=== PATIENT | male | born 1960 | race Caucasian/White ===

== ENCOUNTER 2019-06-25 05:20 | Inpatient (IN) | payer MEDICARE ==
[~2019-06-25] VITALS: Ht 172.7 cm; Wt 95.0 kg
--- NOTE | 2019-06-25 10:30 | NUR ---
POLISHING MACHINE OPERATOR HELPER NOTES RECEIVED PT FROM [facility], BROUGHT IN BY 2 AMBULANCE PERSONNEL VIA [facility], PT IS AWAKE, ALERT AND ORIENTED, DENIES PAIN, RESPIRATIONS NORMAL, ASSISTED TO BED, MADE COMFORTABLE, ROOM SET UP ORIENTATION PROVIDED TO PT, VERBALIZED UNDERSTANDING, PT CAME WITH F/C, DRAINING WELL WITH CLEAR, YELLOW URINE, AWAITING ADMITTING ORDERS FROM MD.
[2019-06-25 11:00] VITALS: BP 137/73
[2019-06-25] MEDS ORDERED: AMLO5TAB9 PO (11:36)
[2019-06-25] MEDS ORDERED: CLOP75TA15 PO (11:36)
[2019-06-25] MEDS ORDERED: FURO80TA3 PO (11:36)
[2019-06-25] MEDS ORDERED: ATOR80TA PO (11:36)
[2019-06-25] MEDS ORDERED: POTA-10 PO (11:36)
[2019-06-25] MEDS ORDERED: SPIR25TA6 PO (11:36)
[2019-06-25] MEDS ORDERED: ATEN50TA PO (11:36)
[2019-06-25] MEDS ORDERED: MAGNESIUM HYDROXIDE 30 ML UDC PO PRN (12:30)
[2019-06-25] MEDS ORDERED: INSULIN REGULAR, HUMAN 100 UNIT/ML 3 ML VIAL SQ PRN (12:30)
[2019-06-25] MEDS ORDERED: Z GUARD REMEDY 2 OZ OINT TP PRN (12:30)
[2019-06-25] MEDS ORDERED: DEXTROSE 50%-WATER 50 ML DISP.SYRIN IV PRN ×2 (12:30→18:30)
[2019-06-25] MEDS ORDERED: MAG HYDROX/AL HYDROX/SIMETH 30 ML UDC PO PRN (12:30)
[2019-06-25] MEDS ORDERED: ONDANSETRON HCL/PF 4 MG/2 ML VIAL IVP PRN (12:30)
[2019-06-25] MEDS ORDERED: ACETAMINOPHEN 325 MG TABLET PO PRN (12:30)
[2019-06-25] MEDS ORDERED: PIPERACILLIN /TAZOBACTAM 3.375 G in IV D5W 50 ML IV ONE ×2 (13:00→18:00)
--- NOTE | 2019-06-25 13:00 | NUR ---
RESOURCE CONSERVATION MANAGER NOTES PT SEEN AND EXAMINED BY DR. HALL, PLAN OF CARE DISCUSSED WITH PT, VERBALIZED UNDERSTANDING.
[2019-06-25 13:39] LABS: BASOPHILS # (AUTO) 1.3 /CMM (0.0-0.2); EOSINOPHILS % (AUTO) 1.8 % (0.0-6.0); HEMATOCRIT 42 % (39-51); HEMOGLOBIN 13.4 g/dL (13.5-17.5); LYMPHOCYTES # (AUTO) 4.2 /CMM (0.8-4.8); LYMPHOCYTES % (AUTO) 22.6 % (20.0-44.0); MEAN CORPUSCULAR HGB CONC 32 g/dl (31.0-36.0); MEAN CORPUSCULAR VOLUME 85 fL (80-96); MONOCYTES # (AUTO) 1.6 /CMM (0.1-1.30); MONOCYTES % (AUTO) 8.5 % (2.0-12.0); NEUTROPHILS # (AUTO) 11.2 /CMM (1.8-8.9); NEUTROPHILS % (AUTO) 60.3 % (43.0-81.0); PLATELET COUNT (AUTO) 250 /CMM (150-450); RED BLOOD CELL COUNT(AUTO) 4.94 MIL/uL (4.5-6.0); WHITE BLOOD COUNT (AUTO) 18.6 K/uL (4.3-11.0)
[2019-06-25 13:47] LABS: BASOPHILS % (AUTO) 6.8 % (0.0-2.0)
[2019-06-25 13:51] LABS: ALBUMIN 3.3 g/dL (3.4-5.0); BILIRUBIN,TOTAL 0.5 mg/dL (0.2-1.0); CALCIUM, SERUM 9.6 mg/dL (8.5-10.1); CREATININE 2.2 mg/dL (0.6-1.3); MAGNESIUM 2.5 mg/dL (1.8-2.4); PHOSPHORUS 2.2 mg/dL (2.5-4.9); POTASSIUM 3.3 mmol/L (3.5-5.1); TOTAL PROTEIN, SERUM 7.6 g/dL (6.4-8.2)
[2019-06-25 13:58] LABS: THYROID STIMULATING HORMONE 2.394 uIU/mL (0.358-3.74)
[2019-06-25] MEDS ORDERED: K PHOS NEUTRAL 250 MG TABLET PO ONE (15:30)
[2019-06-25 16:00] VITALS: BP 141/60
--- NOTE | 2019-06-25 16:19 | NUR ---
RETAIL COSMETICS SALES BEAUTY ADVISOR NOTES INFORMED DR. HALL OF PT'S BLOOD GLUCOSE RESULTS, ORDERS GIVEN, NOTED AND CARRIED OUT.
[2019-06-25] MEDS ORDERED: BLOOD SUGAR DIAGNOSTIC 1 EACH STRIP IN SCH (17:30)
--- NOTE | 2019-06-25 18:32 | NUR ---
OIL FILTERS INSPECTOR NOTES PT IN BED, ASLEEP, EASY TO AROUSE, ALERT AND ORIENTED, NPO FOR NOW, PT VERBALIZED UNDERSTANDING, PM MEDS GIVEN ORDERED, ALL NEEDS ATTENDED.
--- NOTE | 2019-06-25 19:50 | NUR ---
BICYCLE REPAIRMAN OPENING NOTES RECEIVED PATIENT SLEEPING IN BED COMFORTABLY; EASILY AROUSABLE; A/OX4; KHMER SPEAKER; BREATHING EVEN AND UNLABORED; NO SOB NOTED; PATIENT TOLERATING ROOM AIR WELL; PEÑA CATH IN PLACE; FLOWING YELLOW OUTPUT; L FA #20 HL INTACT AND PATENT; FLUSHING WELL; NO S/S OF REDNESS OR INFILTRATION NOTED; SAFETY PRECAUTIONS IMPLEMENTED; BED LOCKED IN LOW POSITION; SIDE RAILS X2; CALL LIGHT WITHIN EASY REACH; WILL CONT TO MONITOR
[2019-06-25 20:00] VITALS: BP 145/73
[2019-06-25] MEDS: PIPERACILLIN /TAZOBACTAM 3.375 G in IV D5W 100 ML IV SCH (20:13)
[2019-06-25 20:36] VITALS: BP 145/73
[2019-06-25] MEDS: BLOOD SUGAR DIAGNOSTIC 1 EACH STRIP VI SCH (21:41)
[2019-06-25] MEDS: ATORVASTATIN 40 MG TABLET PO SCH (21:44)
[2019-06-25] MEDS: INSULIN REGULAR, HUMAN 100 UNIT/ML 3 ML VIAL SQ PRN (21:46)
[2019-06-26] VITALS: BP 136/69
[2019-06-26] MEDS: PIPERACILLIN /TAZOBACTAM 3.375 G in IV D5W 100 ML IV SCH ×3 (03:13→20:11)
--- NOTE | 2019-06-26 03:40 | NUR ---
SINGER SONGWRITER NOTES PATIENT SLEEPING WELL; AWAKENS EASILY; BREATHING EVEN AND UNLABORED; NO SOB NOTED; NO ACUTE DISTRESS; PATIENT A/OX4; HUNGARIAN SPEAKER; TOLERATING IVF WELL; PATIENT NPO STATUS MAINTAINED; WILL CONT TO MONITOR;
[2019-06-26 04:00] VITALS: BP 136/66
[2019-06-26 04:33] VITALS: BP 136/66
--- NOTE | 2019-06-26 05:40 | NUR ---
STUDIO COORDINATOR NOTES MRSA SWAB COLLECTED VIA R NARE; LAB INFORMED
--- NOTE | 2019-06-26 06:17 | NUR ---
REGISTERED DENTAL ASSISTANT RDA NOTES BS 405; RECHECKED BS AT 368
[2019-06-26] MEDS: BLOOD SUGAR DIAGNOSTIC 1 EACH STRIP VI SCH ×4 (06:33→22:10)
[2019-06-26] MEDS: INSULIN REGULAR, HUMAN 100 UNIT/ML 3 ML VIAL SQ PRN ×3 (06:40→17:50)
[2019-06-26 07:00] LABS: BASOPHILS # (AUTO) 0.1 /CMM (0.0-0.2); BASOPHILS % (AUTO) 0.4 % (0.0-2.0); EOSINOPHILS % (AUTO) 2.7 % (0.0-6.0); HEMATOCRIT 39 % (39-51); HEMOGLOBIN 12.5 g/dL (13.5-17.5); LYMPHOCYTES # (AUTO) 6.1 /CMM (0.8-4.8); LYMPHOCYTES % (AUTO) 36.5 % (20.0-44.0); MEAN CORPUSCULAR HGB CONC 32 g/dl (31.0-36.0); MEAN CORPUSCULAR VOLUME 85 fL (80-96); MONOCYTES # (AUTO) 1.3 /CMM (0.1-1.30); MONOCYTES % (AUTO) 7.8 % (2.0-12.0); NEUTROPHILS # (AUTO) 8.8 /CMM (1.8-8.9); NEUTROPHILS % (AUTO) 52.6 % (43.0-81.0); PLATELET COUNT (AUTO) 234 /CMM (150-450); RED BLOOD CELL COUNT(AUTO) 4.58 MIL/uL (4.5-6.0); WHITE BLOOD COUNT (AUTO) 16.6 K/uL (4.3-11.0)
--- NOTE | 2019-06-26 07:04 | NUR ---
INPATIENT AUDITOR CLOSING NOTES PATIENT RESTING IN BED COMFORTABLY; A/OX4 CITIZEN OF [place] SPEAKER; BREATHING EVEN AND UNLABORED; NO SOB NOTED; PATIENT TOLERATING ROOM AIR WELL; ABLE TO MAKE NEEDS KNOWN; TELE MONITOR READS SINUS RHYTHM 60BPM; PEÑA CATH FLOWING YELLOW OUTPUT; NPO STATUS MAINTAINED; L FA #20 H/L INTACT AND PATENT; FLUSHING WELL. NO S/S OF REDNESS OR INFILTRATION; ALL NEEDS RENDERED; SAFETY PRECAUTIONS IMPLEMENTED; BED LOCKED IN LOW POSITION; SIDE RAILS X2; CALL LIGHT WITHIN REACH; WILL ENDORSE NANDO TO ONCOMING SHIFT
[2019-06-26 07:14] LABS: CALCIUM, SERUM 8.7 mg/dL (8.5-10.1); PHOSPHORUS 3.2 mg/dL (2.5-4.9)
--- NOTE | 2019-06-26 07:32 | NUR ---
TELE/RN OPENING NOTES RECEIVED PATIENT RESTING IN BED COMFORTABLY; A/OX4 BAHAMIAN SPEAKER; BREATHING EVEN AND UNLABORED; NO SOB NOTED; PATIENT TOLERATING ROOM AIR WELL; TELE MONITOR READS SINUS RHYTHM 61BPM; PEÑA CATH FLOWING YELLOW OUTPUT; NPO STATUS MAINTAINED; L FA #20 H/L INTACT AND PATENT; FLUSHING WELL. NO S/S OF REDNESS OR INFILTRATION; SAFETY PRECAUTIONS IMPLEMENTED; BED LOCKED IN LOW POSITION; SIDE RAILS X2; CALL LIGHT WITHIN REACH; WILL CONTINUE TO MONITOR.
[2019-06-26 07:41] LABS: POTASSIUM 2.8 mmol/L (3.5-5.1)
--- NOTE | 2019-06-26 07:42 | NUR ---
TELE/RN NOTES POTASSIUM 2.8 AND GLUCOSE 402 MD IS AWARE, WAITING FOR ORDER.
[2019-06-26] MEDS: CLOPIDOGREL BISULFATE 75 MG TABLET PO SCH (08:33)
[2019-06-26] MEDS: AMLODIPINE BESYLATE 5 MG TABLET PO SCH (08:33)
[2019-06-26] MEDS: ATENOLOL 50 MG TABLET PO SCH (08:34)
--- NOTE | 2019-06-26 10:30 | NUR ---
TELE/RN NOTES TAMIKA HALL ORDER CLEAR LIQUID DIET AND ADVANCE DIET IF PATIENT TOLERATED THE CLEAR LIQUID DIET.
--- NOTE | 2019-06-26 10:40 | NUR ---
TELE/RN NOTES TAMIKA HALL HAND I BLOCKER ORDER CLEAR LIQUID NOTED AND CARRIED OUT.
--- NOTE | 2019-06-26 11:14 | NUR ---
TELE/RN NOTES BS 314MG/DL INSULIN 12 UNIT WAS ADMINISTERED.
[2019-06-26] MEDS ORDERED: POTASSIUM CHLORIDE 20 MEQ POWDER PACKET PO ONE (11:37)
[2019-06-26] MEDS ORDERED: POTASSIUM CHLORIDE 20 MEQ POWDER PACKET PO SCH (13:00)
[2019-06-26 16:00] VITALS: BP 120/63
--- NOTE | 2019-06-26 17:51 | NUR ---
TELE/RN NOTES BS 297MG/DL 9 UNITS INSULIN GIVEN
--- NOTE | 2019-06-26 18:31 | NUR ---
TELE/RN CLOSING NOTES PATIENT RESTING IN BED COMFORTABLY; A/OX4 BRITISH SPEAKING. PATIENT BREATHING IS EVEN AND UNLABORED; NO SOB NOTED; PATIENT TOLERATING ROOM AIR WELL; TELE MONITOR READS SINUS JAIDA 55-57BPM; PEÑA CATH FLOWING YELLOW OUTPUT;IV ACCESS IN PLACED AT L FA #20 H/L INTACT AND PATENT; FLUSHING WELL. NO S/S OF REDNESS OR INFILTRATION; SAFETY PRECAUTIONS IMPLEMENTED. SEEN AND EXAMINED BY MD WITH ORDERS AND NOTED. ALL DUE MEDICATION WAS GIVEN. BED LOCKED IN LOW POSITION; SIDE RAILS X2; CALL LIGHT WITHIN REACH; WILL ENDORSED TO FARM MACHINERY SET UP MECHANIC FOR NANDO.
[2019-06-26 19:25] LABS: APPEARANCE,URINE CLEAR (CLEAR); BILIRUBIN,URINE NEGATIVE (NEGATIVE); BLOOD, URINE LARGE Ery/uL (NEGATIVE); COLOR,URINE BROWN (YELLOW); KETONES,URINE NEGATIVE (NEGATIVE); LEUKOCYTE ESTERASE ,URINE NEGATIVE (NEGATIVE); NITRITE, URINE NEGATIVE (NEGATIVE); PH,URINE 6.5 (5.0-8.0); PROTEIN,URINE 30 mg/dl (NEGATIVE); UGLUCOSE 500 MG/DL mg/dL (NEGATIVE); UROBILINOGEN,URINE 0.2 EU/dL (0.2)
--- NOTE | 2019-06-26 20:18 | NUR ---
MS/TELE/RN PATIENT WAS SLEEPING AT MY INITIAL ROUND. RIGHT NOW, PATIENT IS AWAKE, ALERT, ORIENTED, COMFORTABLE, NO C/O PAIN, NON DISTRESS NOTED, CALL LIGHT IN REACH. WILL MONITOR
--- NOTE | 2019-06-26 20:22 | NUR ---
MS/TELE/RN AT INITIAL ROUND AT 1930, PATIENT WAS AWAKE, ALERT, COMFORTABLE, NO DISTRESS NOTED, CALL LIGHT IN REACH, WILL MONITOR.
[2019-06-26 20:50] VITALS: BP 131/73
[2019-06-26 21:15] LABS: BACTERIA,URINE None seen /HPF (None Seen); RBC,URINE 51-80 /HPF (0-2); SQUAMOUS EPITHELIAL CELL,UR Few /HPF (None Seen); WBC,URINE 0-2 /HPF (0-3)
[2019-06-26] MEDS: INSULIN GLARGINE, 100 UNIT/ML CARTRIDGE SQ SCH (22:00)
[2019-06-26] MEDS: TAMSULOSIN 0.4 MG CAP.SR.24H PO SCH (22:01)
[2019-06-26] MEDS: ATORVASTATIN 40 MG TABLET PO SCH (22:01)
[2019-06-26] MEDS: *INSULIN REGULAR(HUMULIN R)HUM 100 UNIT/ML VIAL SQ PRN (22:06)
[2019-06-27] VITALS: BP 140/70
--- NOTE | 2019-06-27 00:03 | NUR ---
MS/TELE/RN PATIENT IS SLEEPING AT THIS TIME, APPEAR COMFORTABLE, NO DISTRESS NOTED, CALL LIGHT IN REACH. WILL CONTINUE TO MONITOR.
[2019-06-27] MEDS: PIPERACILLIN /TAZOBACTAM 3.375 G in IV D5W 100 ML IV SCH ×2 (03:59→11:26)
[2019-06-27 04:08] VITALS: BP 126/65
[2019-06-27 06:14] LABS: BASOPHILS # (AUTO) 0.2 /CMM (0.0-0.2); BASOPHILS % (AUTO) 0.9 % (0.0-2.0); EOSINOPHILS % (AUTO) 2.9 % (0.0-6.0); HEMATOCRIT 40 % (39-51); HEMOGLOBIN 12.7 g/dL (13.5-17.5); LYMPHOCYTES # (AUTO) 6.2 /CMM (0.8-4.8); LYMPHOCYTES % (AUTO) 31.7 % (20.0-44.0); MEAN CORPUSCULAR HGB CONC 32 g/dl (31.0-36.0); MEAN CORPUSCULAR VOLUME 85 fL (80-96); MONOCYTES # (AUTO) 1.3 /CMM (0.1-1.30); MONOCYTES % (AUTO) 6.8 % (2.0-12.0); NEUTROPHILS # (AUTO) 11.3 /CMM (1.8-8.9); NEUTROPHILS % (AUTO) 57.7 % (43.0-81.0); PLATELET COUNT (AUTO) 248 /CMM (150-450); WHITE BLOOD COUNT (AUTO) 19.6 K/uL (4.3-11.0)
[2019-06-27] MEDS: BLOOD SUGAR DIAGNOSTIC 1 EACH STRIP VI SCH ×5 (06:39→21:29)
[2019-06-27] MEDS: INSULIN REGULAR, HUMAN 100 UNIT/ML 3 ML VIAL SQ PRN ×3 (06:41→17:25)
--- NOTE | 2019-06-27 06:59 | NUR ---
MS/TELE/RN PATIENT IS AWAKE, ALERT, ORIENTED, COMFORTABLE, NO CHANGE IN CONDITION, ALL NEEDS ATTENDED AT THIS TIME, WILL CONTINUE TO MONITOR.
[2019-06-27 07:00] LABS: CALCIUM, SERUM 9.1 mg/dL (8.5-10.1); POTASSIUM 3.3 mmol/L (3.5-5.1)
[2019-06-27] MEDS: CLOPIDOGREL BISULFATE 75 MG TABLET PO SCH (08:48)
[2019-06-27] MEDS: ATENOLOL 50 MG TABLET PO SCH (08:48)
[2019-06-27 08:52] VITALS: BP 130/70
[2019-06-27] MEDS: AMLODIPINE BESYLATE 5 MG TABLET PO SCH (08:52)
[2019-06-27] MEDS ORDERED: POTASSIUM CHLORIDE 20 MEQ POWDER PACKET PO SCH (10:30)
--- NOTE | 2019-06-27 14:35 | NUR ---
TELE/RN OPENING NOTES RECEIVED PATIENT RESTING IN BED COMFORTABLY. PATIENT IS ALERT AND ORIENTED X4 HUNGARIAN SPEAKING. BREATHING EVEN AND UNLABORED, NO SOB NOTED. PATIENT TOLERATING ROOM AIR WELL; TELE MONITOR READS SINUS RHYTHM 60BPM. PEÑA CATH FLOWING YELLOW OUTPUT; IV ACCESS IN PLACE AT LEFT FOREARM #20 H/L INTACT AND PATENT; FLUSHING WELL. NO S/S OF REDNESS OR INFILTRATION; SAFETY PRECAUTIONS IMPLEMENTED; BED LOCKED IN LOW POSITION; SIDE RAILS X2; CALL LIGHT WITHIN REACH. WILL CONTINUE TO MONITOR.
--- NOTE | 2019-06-27 15:33 | NUR ---
TELE/RN NOTES TAMIKA MONAE PATIENT CAN ADVANCE DIET TO DIABETIC DIET IF PATIENT CAN TOLERATE THE FULL LIQUID DIET. PATIENT NO COMPLAINED OF ABDOMINAL PAIN SINCE BREAKFAST AND LUNCH.
[2019-06-27 16:05] VITALS: BP 136/63
--- NOTE | 2019-06-27 17:27 | NUR ---
TELE/RN NOTES BS 372MG/DL INSULIN 15 UNIT WAS ADMINISTERED.
--- NOTE | 2019-06-27 18:44 | NUR ---
TELE/RN CLOSING NOTES PATIENT RESTING IN BED COMFORTABLY. PATIENT IS ALERT AND ORIENTED X4. BREATHING EVEN AND UNLABORED, PATIENT DENIES PAIN AT THIS TIME. PATIENT IN NO APPARENT RESPIRATORY DISTRESS NOTED. PATIENT IN ROOM AIR SATURATION OF 97%. TELE MONITOR READS SINUS RHYTHM [address]PM[address] IV ACCESS IN PLACE AT LEFT FOREARM #20 H/L INTACT AND PATENT, FLUSHING WELL. NO S/S OF REDNESS OR INFILTRATION. SAFETY PRECAUTIONS IMPLEMENTED, SEEN AND EXAMINED BY MD WITH ORDERS MADE AND CARRIED OUT. ALL DUE MEDS WAS GIVEN. CHECKED PATIENT EVERY TWO HOURS. BED LOCKED IN LOW POSITION; SIDE RAILS UP X2; CALL LIGHT WITHIN REACH. WILL ENDORSED TO WOOD STRIP BLOCK FLOOR INSTALLER FOR NANDO.
--- NOTE | 2019-06-27 19:10 | NUR ---
MAINFRAME ANALYST OPENING NOTES: RECEIVED PATIENT IN BED, AWAKE, A/O X4. NO SOB NOTED. NO COMPLAIN OF PAIN. URINAL AT THE BEDSIDE. REMIND PATIENT TO CALL WHEN OOB,PATIENT VERBALIZED UNDERSTANDING. CALL LIGHT WITHION REACH. BED ALARM ON. BED IN LOWEST AND LOCKED POSITION.
[2019-06-27 20:00] VITALS: BP 145/79
[2019-06-27 20:31] VITALS: BP 145/79
[2019-06-27] MEDS: TAMSULOSIN 0.4 MG CAP.SR.24H PO SCH (21:10)
[2019-06-27] MEDS: ATORVASTATIN 40 MG TABLET PO SCH (21:10)
[2019-06-27] MEDS: *INSULIN REGULAR(HUMULIN R)HUM 100 UNIT/ML VIAL SQ PRN (21:17)
[2019-06-27] MEDS: INSULIN GLARGINE, 100 UNIT/ML CARTRIDGE SQ SCH (21:22)
--- NOTE | 2019-06-27 21:33 | NUR ---
BLOOD SUGAR GSTISUTOXGP=[id number]. LANTUS 10 UNITS AND REGULAR INSULIN 10 UNITS GIVEN, INFORMED DR DOOLEY AND CHARGE NURSE.
[2019-06-28] VITALS: BP 128/61
[2019-06-28 03:57] VITALS: BP 119/59
--- NOTE | 2019-06-28 06:14 | NUR ---
SALESPERSON MEATS CLOSING NOTES: PATIENT IN BED, A/O X4. NO SOB NOTED. NO COMPLAIN OF PAIN. VOIDING. CALL LIGHT WITHIN REACH. BED IN LOWEST AND LOCKED POSITION.AFEBRILE. VITALS STABLE. RESTED THROUGHOUT THE NIGHT.
[2019-06-28] MEDS: INSULIN REGULAR, HUMAN 100 UNIT/ML 3 ML VIAL SQ PRN (06:28)
--- NOTE | 2019-06-28 07:30 | NUR ---
MS/RN Opening note Patient received from night shift supervisor. A/O X4, vital signs stable, denies any pain or distress at this time. Heplock to left forearm flushing well with normal saline. All questions and concerns addressed. Will continue to monitor and ensure safety.
[2019-06-28 07:50] LABS: CALCIUM, SERUM 9.1 mg/dL (8.5-10.1); CREATININE 1.8 mg/dL (0.6-1.3); POTASSIUM 3.4 mmol/L (3.5-5.1)
[2019-06-28 08:00] VITALS: BP 127/69
[2019-06-28 08:46] LABS: BASOPHILS # (AUTO) 0.1 /CMM (0.0-0.2); BASOPHILS % (AUTO) 0.3 % (0.0-2.0); EOSINOPHILS % (AUTO) 2.6 % (0.0-6.0); HEMATOCRIT 39 % (39-51); HEMOGLOBIN 12.4 g/dL (13.5-17.5); LYMPHOCYTES # (AUTO) 6.4 /CMM (0.8-4.8); LYMPHOCYTES % (AUTO) 32.8 % (20.0-44.0); MEAN CORPUSCULAR HGB CONC 32 g/dl (31.0-36.0); MEAN CORPUSCULAR VOLUME 86 fL (80-96); MONOCYTES # (AUTO) 1.1 /CMM (0.1-1.30); MONOCYTES % (AUTO) 5.8 % (2.0-12.0); NEUTROPHILS # (AUTO) 11.5 /CMM (1.8-8.9); NEUTROPHILS % (AUTO) 58.5 % (43.0-81.0); PLATELET COUNT (AUTO) 248 /CMM (150-450); RED BLOOD CELL COUNT(AUTO) 4.54 MIL/uL (4.5-6.0); WHITE BLOOD COUNT (AUTO) 19.6 K/uL (4.3-11.0)
[2019-06-28 08:55] VITALS: BP 127/69
[2019-06-28] MEDS: ATENOLOL 50 MG TABLET PO SCH (08:55)
[2019-06-28] MEDS: AMLODIPINE BESYLATE 5 MG TABLET PO SCH (08:55)
[2019-06-28] MEDS: CLOPIDOGREL BISULFATE 75 MG TABLET PO SCH (08:55)
[2019-06-28] MEDS: BLOOD SUGAR DIAGNOSTIC 1 EACH STRIP VI SCH ×2 (08:56→11:57)
--- NOTE | 2019-06-28 09:03 | NUR ---
MS/RN S/B Ronan Huang Seen by CLOTH BOLT BANDER - labs ordered for tomorrow.
--- NOTE | 2019-06-28 09:10 | NUR ---
MS/RN Labs Morning labs reviewed: -WBC 19.6 -Glucose 317
[2019-06-28] MEDS ORDERED: INSU100I19 SQ (09:34)
[2019-06-28] MEDS ORDERED: INSU100I4 SQ (09:34)
[2019-06-28] MEDS ORDERED: TAMS-12 PO (09:34)
--- NOTE | 2019-06-28 09:36 | NUR ---
MS/senior security analyst order Order noted from Ronan Huang that patient to be discharged to home today.
[2019-06-28] MEDS ORDERED: POTASSIUM CHLORIDE 10 MEQ TABLET.SA PO SCH (10:30)
--- NOTE | 2019-06-28 10:47 | NUR ---
MS/RN Exit care Exit care prepared and signed by patient. Educated as to the importance of following up with primary care doctor, and the need to have blood drawn to check PSA level, patient stated understanding. Re-educated about checking blood sugars and correct way to administer insulin, again stated understanding. Explained that prescription for insulin and flomax had been sent electronically to preferred pharmacy, already verified correct pharmacy. All personal belongings returned to patient and accounted for on belongings list, form signed by both GRANULIZING MACHINE OPERATOR and patient. Patient stated that family member will be able to provide transport and collect patient after lunch.
[2019-06-28] MEDS: *INSULIN REGULAR(HUMULIN R)HUM 100 UNIT/ML VIAL SQ PRN (11:59)
--- NOTE | 2019-06-28 15:04 | NUR ---
MS/sole leveler machine Patient discharged to home in stable condition. All personal belongings accounted for upon discharge and signed for on belongings list. Exit care and copy of medical record provided to patient upon leaving. Heplock and name bands removed. Escorted to main lobby by RN.
== END 2019-06-28 14:50 | disposition home or self-care (01) | DRG 391 ==
LOC: TELE 10:18 → MED 06-28 11:41
PROVIDERS: ADMIT Nurse Practitioner Acute Care; ATTEND Nurse Practitioner Acute Care
DX: K59.00 Constipation, unspecified (principal); N17.0 Acute kidney failure with tubular necrosis; E87.1 Hypo-osmolality and hyponatremia; E87.2 Acidosis; N39.0 Urinary tract infection, site not specified; I13.0 Hypertensive heart and chronic kidney disease with heart failure and stage 1 through stage 4 chronic kidney disease, or unspecified chronic kidney disease; I50.30 Unspecified diastolic (congestive) heart failure; E87.6 Hypokalemia; E11.22 Type 2 diabetes mellitus with diabetic chronic kidney disease; Z86.73 Personal history of transient ischemic attack (TIA), and cerebral infarction without residual deficits; Z91.14 Patient's other noncompliance with medication regimen; Z91.19 Patient's noncompliance with other medical treatment and regimen; D72.829 Elevated white blood cell count, unspecified; E11.21 Type 2 diabetes mellitus with diabetic nephropathy; E11.319 Type 2 diabetes mellitus with unspecified diabetic retinopathy without macular edema; R33.9 Retention of urine, unspecified; E11.65 Type 2 diabetes mellitus with hyperglycemia; E66.9 Obesity, unspecified; Z68.31 Body mass index [BMI] 31.0-31.9, adult; E78.5 Hyperlipidemia, unspecified; F17.210 Nicotine dependence, cigarettes, uncomplicated; N18.3 Chronic kidney disease, stage 3 (moderate)
CPT/HCPCS: 36415; 71045-TC; 80048-TC; 80053-TC; 80061-TC; 81000-TC; 82962-TC; 83605-TC; 83690-TC; 83735-TC; 84100-TC; 84443-TC; 85025-TC; 87040-TC; 87081-TC; 87086-TC; G0378; J1815; J2543; J7050; J7060